=== PATIENT | female | born 1940 | race African-American/Black ===

== ENCOUNTER 2025-04-02 00:27 | Emergency (ER) | payer MEDICARE | END 2025-04-02 01:46 | LOC: NAV ERS 00:27 | DX: F03.90 Unspecified dementia, unspecified severity, without behavioral disturbance, psychotic disturbance, mood disturbance, and anxiety (principal); I10 Essential (primary) hypertension; E78.5 Hyperlipidemia, unspecified; Z79.899 Other long term (current) drug therapy | CPT/HCPCS: 99284 ==